=== PATIENT | female | born 1950 ===

== ENCOUNTER → 2020-05-23 | Outpatient (CLI) | payer MEDICARE ==
[~2020-05-23] MED LIST: ACET-784 PO; BISA10SU11 PR; DONE10TA8 PO; FAMO20 PO; IPRA3AMP24 IH; LEVE500T53 PO; METO50 PO; MULT-264 PO; QUET25TA PO; SENN8.6T20 PO
[2020-05-23 10:28] VITALS: BP 114/61
== END | disposition home or self-care (01) ==
LOC: SRCNTR 10:00
PROVIDERS: ATTEND Internal Medicine Cardiovascular Disease
DX: I48.0 Paroxysmal atrial fibrillation (principal); I10 Essential (primary) hypertension; F03.90 Unspecified dementia, unspecified severity, without behavioral disturbance, psychotic disturbance, mood disturbance, and anxiety; I60.9 Nontraumatic subarachnoid hemorrhage, unspecified; J96.90 Respiratory failure, unspecified, unspecified whether with hypoxia or hypercapnia; J18.9 Pneumonia, unspecified organism
CPT/HCPCS: 93005; G0463